=== PATIENT | male | born 1950 | race Caucasian/White ===

== ENCOUNTER 2019-07-31 12:20 | Outpatient (CLI) | payer MEDICARE, OTHER ==
[2019-07-31] MEDS ORDERED: IOVERSOL 320 100 ML VIAL IVP ONE (12:49)
[2019-07-31] MEDS ORDERED: IOVERSOL 320 50 ML VIAL ONE (12:49)
[2019-07-31 13:00] LABS: CREATININE 1.2 mg/dL (0.6-1.2)
--- NOTE | 2019-07-31 15:54 | CT Report ---
Reason: SEPTIC PULMONARY EMBOLISM WITHOUT ACUTE Procedure Date: 07/31/2019 Accession Number: [id number] / [id number] Procedure: CT - Abdomen/Pelvis W CPT Code: FULL RESULT: EXAM: CT ABDOMEN AND PELVIS EXAM DATE: 07/31/2019 02:11 PM. CLINICAL HISTORY: SEPTIC PULMONARY EMBOLISM WITHOUT ACUTE. COMPARISONS: None. TECHNIQUE: Routine helical CT imaging was performed through the abdomen and pelvis. IV contrast: CE. Enteric contrast: No. Reconstructions: Coronal and sagittal. In accordance with CT protocol optimization, one or more of the following dose reduction techniques were utilized for this exam: automated exposure control, adjustment of mA and/or KV based on patient size, or use of iterative reconstructive technique. FINDINGS: Lung Bases: Unremarkable. Liver: 9 mm well-defined hypodense lesion in right lobe of liver is too small to get rest, however is statistically likely to be simple cyst. No masses. Gallbladder/Bile Ducts: Unremarkable. Spleen: Normal. Pancreas: Normal. Adrenal Glands: Normal. Kidneys: A 3.5 cm exophytic hypodense lesion in lower pole of left kidney is consistent with simple cyst. Peritoneal Cavity/Bowel: Normal. No free fluid, free air or adenopathy. No masses or acute inflammatory process. The appendix is well visualized and normal. Diffuse colonic diverticulosis however no diverticulitis. Pelvic Organs: Normal. The bladder and visualized pelvic organs are within normal limits. Vasculature: No aneurysms or other significant abnormality. 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 Other: None. IMPRESSION: A 3.5 cm exophytic simple cyst in lower pole of left kidney. 9 mm hypodense subcentimeter lesion in right lobe of liver is too small to characterize. Appendix not visualized. Diffuse colonic diverticulosis however no diverticulitis. No other significant abnormality. [facility]
== END 2019-07-31 12:21 | disposition home or self-care (01) ==
LOC: EDBD → DI 12:20
PROVIDERS: ATTEND Internal Medicine
DX: I26.90 Septic pulmonary embolism without acute cor pulmonale (principal); I10 Essential (primary) hypertension; N28.1 Cyst of kidney, acquired; K76.9 Liver disease, unspecified; K57.30 Diverticulosis of large intestine without perforation or abscess without bleeding
CPT/HCPCS: 36415; 74177; 82565; Q9967

== ENCOUNTER 2019-08-13 12:04 | Outpatient (CLI) | payer MEDICARE, OTHER ==
--- NOTE | 2019-08-13 16:42 | Ultrasound Report ---
Reason: HX PRIOR DVT, ACUTE CLOT BURDEN Procedure Date: 08/13/2019 Accession Number: [id number] / [id number] Procedure: US - Duplex Ext Veins Bilateral CPT Code: FULL RESULT: EXAM: BILATERAL LOWER EXTREMITY VENOUS ULTRASOUND EXAM DATE: 08/13/2019 01:36 PM. CLINICAL HISTORY: Recent pulmonary embolus diagnosed at [facility]. Looking for clot source. History of DVT. COMPARISON: ABDOMEN/PELVIS W/ 07/31/2019 2:01 PM. TECHNIQUE: Real-time sonographic vascular imaging was performed by the tank insulator rubber through the lower extremities utilizing both color-flow and Doppler spectral analysis. Multiple internet sales representative static images were saved for review. FINDINGS: Right: Common Femoral Vein (CFV): Normal. CFV-GSV Junction: Normal. Profunda Femoral Vein (PFV): Normal. Femoral Vein (FV) Prox: Normal. Femoral Vein (FV) Mid: Normal. Femoral Vein (FV) Dist: Normal. Popliteal Vein: Normal. Posterior Tibial Veins: Normal. Peroneal Veins: Normal. Left: Common Femoral Vein (CFV): Normal. CFV-GSV Junction: Normal. Profunda Femoral Vein (PFV): Nonocclusive thrombus. Femoral Vein (FV) Prox: Normal. Femoral Vein (FV) Mid: Normal. Femoral Vein (FV) Dist: Normal. Popliteal Vein: Normal. Posterior Tibial Veins: Normal. Peroneal Veins: Occlusive thrombus. Other: None. IMPRESSION: 1. No evidence for deep venous thrombosis right lower extremity. 2. Occlusive thrombus both left peroneal veins and nonocclusive thrombus left profunda femoral vein. RAD[facility]
== END 2019-08-13 12:05 | disposition home or self-care (01) ==
LOC: DI 12:04
PROVIDERS: ATTEND Internal Medicine
DX: I82.492 Acute embolism and thrombosis of other specified deep vein of left lower extremity (principal)
CPT/HCPCS: 93970